=== PATIENT | male | born 1965 | race Caucasian/White ===

== ENCOUNTER 2019-02-02 20:30 | Emergency (ER) | payer SELFPAY ==
[~2019-02-02] VITALS: Ht 160 cm; Wt 73.6 kg
[2019-02-02 20:33] VITALS: Ht 160 cm; Wt 73.6 kg
[2019-02-02] MEDS ORDERED: ONDANSETRON 4 MG INJ IV STA (22:37)
[2019-02-02] MEDS ORDERED: morphine 4 MG/ML VIAL IV STA (22:37)
--- NOTE | 2019-02-02 22:43 | ERD ---
ER Documentation Chief Complaint Chief Complaint DENTAL PAIN X 2 WEEKS HPI This is a 53-year-old male presented emergency department with complaints of right-sided pain and swelling that extends to the right ear. Also complains of right tooth pain for about a week. Denies headache, head injury, loss of consciousness, dizziness, neck pain, neck stiffness, throat pain, difficulty swallowing, difficulty breathing lying flat, shoulder pain, chest pain, back pain, abdominal pain, nausea, vomiting, constipation, diarrhea, urinary symptoms, loss of bowel and bladder control, trauma, injury, falls, difficulty walking due to pain, numbness or tingling sensation, calf pain, recent travel, recent major surgery in the last 3 weeks, calf pain, recent long travel, recent exposure to any illness, recent antibiotic use in the last 3 months, fever, chills, seizures. Past medical history: Surgical history: Social: Denies smoking, use of alcoholic beverages, use of illegal drugs. ROS All systems reviewed and are negative except as per history of present illness. Medications Home Meds Active Scripts Ciprofloxacin Hcl/Dexameth (Ciprodex Otic Suspension) 7.5 Ml Drops.susp, 4 DROP BOTH EARS BID for 7 Days, EA Prov:DRISSELDA F 02/02/19 Omeprazole* (Omeprazole*) 40 Mg Capsule.dr, 40 MG PO DAILY, #30 CAP Prov:PASILABANALFREDOJONATHAN F 02/02/19 Ibuprofen* (Motrin*) 800 Mg Tab, 800 MG PO Q6H PRN for PAIN AND OR ELEVATED TEMP, #30 TAB Prov:PASILAVITALYELDA F 02/02/19 Ondansetron Hcl* (Zofran*) 4 Mg Tablet, 4 MG PO Q8H PRN for NAUSEA AND/OR VOMITING, #30 TAB Prov:PASILABANALFREDOJONATHAN F 02/02/19 Prednisone* (Prednisone*) 20 Mg Tab, 60 MG PO DAILY for 4 Days, TAB Prov:PASILABANALFREDOAR F 02/02/19 Amoxicillin/Potassium Clav (Amox-Clav 875-125 mg Tablet) 875-125 mg Tab, 1 TAB PO BID for 10 Days, #20 TAB Prov:PASILABANALFREDOAR F 02/02/19 Allergies Allergies: Coded Allergies: No Known Allergy (Unverified , 02/02/19) PMhx/Soc Medical and Surgical Hx: pt denies Medical Hx, pt denies Surgical Hx History of Surgery: No Anesthesia Reaction: No Hx Neurological Disorder: No Hx Respiratory Disorders: No Hx Cardiac Disorders: No Hx Psychiatric Problems: No Hx Miscellaneous Medical Probl: No Hx Alcohol Use: No Hx Substance Use: No Hx Tobacco Use: No Smoking Status: Never smoker Physical Exam Vitals Vital Signs Date Temp Pulse Resp B/P (MAP) Pulse Ox O2 O2 Flow FiO2 Time Delivery Rate 02/03/19 98.5 61 20 117/84 99 Room Air 00:15 (95) 02/02/19 99.6 78 16 134/69 100 20:33 (90) Physical Exam Head: Atraumatic Eyes: Normal Conjunctiva. No conjunctival injection. Extraocular movement of his eyes are within normal limits. There is no pain in eye movement. Periorbital area has no swelling/tenderness/discoloration. ENT: Normal External Ears, Nose and Mouth. Bilateral ears: External canal has erythema. TMs are not erythematous. No bleeding. No discharge. No hearing loss. No mastoid tenderness. Nose: There is right frontal or maxillary sinus tenderness palpation. Throat: Uvula is in midline and nondisplaced. Right upper first premolar gum area has a mild greenish discharge with tenderness. Tonsils are +1 bilaterally without redness and without exudates. Tolerating secretions. Patent airway. Speaks full and clear sentences. No tripoding. Neck: Full range of motion. No meningismus. No nuchal rigidity. No signs of meningeal irritation. Resp: Clear to auscultation bilaterally. No accessory muscle use in breathing. Cardio: Regular rate and rhythm, no murmurs Abd: Soft, non tender, non distended. Normal bowel sounds. Negative Roberts sign. Skin: No petechiae or rashes. Color appears normal for ethnicity. No skin tenting. No signs of severe dehydration. Back: No midline or flank tenderness Ext: No cyanosis, or edema Neur: Awake and alert. No neurological deficits. Psych: Normal Mood and Affect Results 24 hrs Current Medications Medications Dose Sig/[employer] Start Time Status Last (Trade) Ordered Route PRN Stop Time Admin Dose Reason Admin 125 mg ONCE ONCE 02/02/19 DC Methylprednis IV 23:00 olone Sodium 02/02/19 23:00 Succinate (Solu-Medrol) Morphine 4 mg ONCE STAT 6/22/19 DC Sulfate IV 22:37 (morphine) 02/02/19 22:53 Ondansetron 4 mg ONCE STAT 02/02/19 DC HCl (Zofran IV 22:37 Inj) 02/02/19 22:53 Sodium 1,000 ml @ Q1H ONCE 02/02/19 DC Chloride 1,000 mls/hr IV 23:00 02/02/19 23:00 125 mg ONCE ONCE 02/02/19 DC Methylprednis IM 23:00 olone Sodium 02/02/19 23:07 Succinate (Solu-Medrol) Ceftriaxone 1 gm ONCE ONCE 02/02/19 DC Sodium IM 23:00 (Rocephin) 02/02/19 23:07 Ondansetron 4 mg ONCE STAT 02/02/19 DC 02/02/19 HCl (Zofran ODT 22:51 23:08 Odt) 02/02/19 22:53 1 tab ONCE ONCE 02/02/19 DC 02/02/19 Acetaminophen PO 23:00 23:08 / 02/02/19 23:01 Hydrocodone Bitart ([place] ()) Ceftriaxone 50 ml @ ONCE ONCE 02/02/19 DC 02/02/19 Sodium 100 mls/hr IVPB 23:30 23:22 02/02/19 23:59 125 mg ONCE ONCE 02/02/19 DC 02/02/19 Methylprednis IV 23:30 23:09 olone Sodium 02/02/19 23:31 Succinate (Solu-Medrol) Procedures/MDM Diagnostic tests: Clinical exam. Treatment: Ceftriaxone IV. Solu-Medrol IV clinical exam. [place]. Zofran. Re-evaluation: No episode of emesis in the emergency department. Extraocular movement of his eyes are within normal limits. Lips/throat: No lip swelling. Uvula is in midline and not displaced. Tonsils are +2 bilaterally with redness but no exudates. Tolerating secretions with patent airway. Speaks full and clear sentences. No nuchal rigidity. No signs of any irritation. Romberg test is negative. No neurological deficits. Stated that he feels much better at this time and that he is ready and comfortable going home. Differential diagnosis I have low suspicion for sepsis, severe serious bacterial, angioedema, pe ritonsillar abscess, meningitis, periorbital cellulitis, orbital cellulitis, mastoiditis,, anaphylaxis, anaphylactic shock. Final diagnosis: Sinusitis. Otitis externa. Prescription: Augmentin. Motrin. Prednisone. Zofran. Cipro optic drops. Omeprazole. Follow-up with PCP in the next 24-48 hours. Follow-up with your dentist in the next 24 to 48 hours. Follow-up with ENT in the next 24 to 48 hours. Come back here in the emergency department for any new symptoms or any worsening symptoms. All questions and concerns were answered. Patient and family members verbalized understanding and agreed with plan of care. Hemodynamically stable on discharge. Departure Diagnosis: Primary Impression: Dental abscess Additional Impressions: Gum abscess Sinusitis Otitis externa Condition: Stable Additional Instructions: Follow-up with PCP in the next 24-48 hours. Follow-up with your dentist in the next 24 to 48 hours. Follow-up with ENT in the next 24 to 48 hours. Come back here in the emergency department for any new symptoms or any worsening symptoms. ELDA NAQVI Feb 02, 2019 22:43
[2019-02-02] MEDS ORDERED: ONDANSETRON (ODT) 4 MG TAB ODT STA (22:51)
[2019-02-02] MEDS ORDERED: IBUP800T48 PO (22:58)
[2019-02-02] MEDS ORDERED: OMEP40CA6 PO (22:58)
[2019-02-02] MEDS ORDERED: PRED20TA PO (22:58)
[2019-02-02] MEDS ORDERED: AMOX1TAB10 PO (22:58)
[2019-02-02] MEDS ORDERED: ONDA4TAB8 PO (22:58)
[2019-02-02] MEDS ORDERED: CIPR7.5D BOTH EARS (22:59)
[2019-02-02] MEDS ORDERED: HYDROCODONE/APAP (10/325) TAB PO ONE (23:00)
[2019-02-02] MEDS ORDERED: SOD CHLORIDE 0.9% 1,000 ML IV ONE (23:00)
[2019-02-02] MEDS ORDERED: METHYLPREDNISOLONE 125 MG INJ IV ONE ×2 (23:00→23:30)
[2019-02-02] MEDS ORDERED: METHYLPREDNISOLONE 125 MG INJ IM ONE (23:00)
[2019-02-02] MEDS ORDERED: CEFTRIAXONE 1 GM INJ IM ONE (23:00)
[2019-02-02] MEDS ORDERED: CEFTRIAXONE 1 GM/50 ML (PMX) 50 ML IVPB ONE (23:30)
[2019-02-03 00:15] VITALS: BP 117/84; PULSE 61; RESP 20
== END 2019-02-03 00:25 | disposition home or self-care (01) ==
LOC: FTE 20:30
DX: K04.6 Periapical abscess with sinus (principal); H60.93 Unspecified otitis externa, bilateral; K05.319 Chronic periodontitis, localized, unspecified severity
CPT/HCPCS: 96374; 96375; 99284; J0696; J2930; J7030

== ENCOUNTER 2019-02-13 19:40 | Emergency (ER) | payer MEDICAID ==
[~2019-02-13] VITALS: Ht 154.9 cm; Wt 72.5 kg
[~2019-02-13 19:40] MED LIST: AMOX1TAB10 PO; CIPR7.5D BOTH EARS; IBUP800T48 PO; OMEP40CA6 PO; ONDA4TAB8 PO; PRED20TA PO
[2019-02-13 19:43] VITALS: BP 119/63; PULSE 65; RESP 18; Ht 154.9 cm; Wt 72.5 kg
--- NOTE | 2019-02-13 21:31 | ERD ---
ER Documentation Chief Complaint Chief Complaint BILAT EAR PAIN X'S 2 WEEKS, SEEN HERE; PAIN CONTINUES HPI 53-year-old male presents the emergency department who presents emergency department department for right sinus pain. Was seen by myself in the emergency department was treated for Sinusitis, Tonsillitis, otitis media. Denies headache, head injury, loss of consciousness, dizziness, neck pain, neck stiffness, throat pain, difficulty swallowing, difficulty breathing lying flat, shoulder pain, chest pain, back pain, abdominal pain, nausea, vomiting, constipation, diarrhea, urinary symptoms, loss of bowel and bladder control, trauma, injury, falls, difficulty walking due to pain, numbness or tingling sensation, calf pain, recent travel, recent major surgery in the last 3 weeks, calf pain, recent long travel, recent exposure to any illness, recent antibiotic use in the last 3 months, fever, chills, seizures. Past medical history: Denies. Surgical history: Denies. Social: Denies smoking, use of alcoholic beverages, use of illegal drugs. ROS All systems reviewed and are negative except as per history of present illness. Medications Home Meds Active Scripts Mometasone Furoate* (Nasonex*) 50 Mcg/[place] - 17 Gm [place].pump, 1 SPRAY NASAL BID, #1 BOTTLE IN EACH NOSTRIL Prov:PASILAELDA HAIDER F 02/13/19 Methylprednisolone* (Medrol* DOSE PACK) 4 Mg/Dose-Pack Tab.ds.pk, 4 MG PO . DIRECTED, #1 PACKET Prov:PASILABANALFREDOAR F 02/13/19 Omeprazole* (Omeprazole*) 40 Mg Capsule.dr, 40 MG PO DAILY, #30 CAP Prov:PASILABANELDA F 02/13/19 Ibuprofen* (Motrin*) 800 Mg Tab, 800 MG PO Q6H PRN for PAIN AND OR ELEVATED TEMP, #30 TAB Prov:PASILABANALFREDOAR F 02/13/19 Sulfamethoxazole/Trimethoprim* (Bactrim Ds* Tablet) 1 Each Tablet, 1 TAB PO BID for 7 Days, #14 TAB Prov:PASILABANALFREDOAR F 02/13/19 Ciprofloxacin Hcl/Dexameth (Ciprodex Otic Suspension) 7.5 Ml Drops.susp, 4 DROP BOTH EARS BID for 7 Days, EA Prov:PASILABAN,ALFREDOAR F 02/02/19 Omeprazole* (Omeprazole*) 40 Mg Capsule.dr, 40 MG PO DAILY, #30 CAP Prov:ELDA NAQVI 02/02/19 Ibuprofen* (Motrin*) 800 Mg Tab, 800 MG PO Q6H PRN for PAIN AND OR ELEVATED TEMP, #30 TAB Prov:ELDA NAQVI 02/02/19 Ondansetron Hcl* (Zofran*) 4 Mg Tablet, 4 MG PO Q8H PRN for NAUSEA AND/OR VOMITING, #30 TAB Prov:ELDA NAQVI 02/02/19 Prednisone* (Prednisone*) 20 Mg Tab, 60 MG PO DAILY for 4 Days, TAB Prov:ELDA NAQVI 02/02/19 Amoxicillin/Potassium Clav (Amox-Clav 875-125 mg Tablet) 875-125 mg Tab, 1 TAB PO BID for 10 Days, #20 TAB Prov:ELDA NAQVI 02/02/19 Allergies Allergies: Coded Allergies: No Known Allergy (Unverified , 02/02/19) PMhx/Soc Medical and Surgical Hx: pt denies Medical Hx, pt denies Surgical Hx History of Surgery: No Anesthesia Reaction: No Hx Neurological Disorder: No Hx Respiratory Disorders: No Hx Cardiac Disorders: No Hx Psychiatric Problems: No Hx Miscellaneous Medical Probl: No Hx Alcohol Use: No Hx Substance Use: No Hx Tobacco Use: No Smoking Status: Never smoker Physical Exam Vitals Physical Exam Head: Atraumatic Eyes: Normal Conjunctiva. There is no periorbital swelling bilaterally. Extraocular movement of his eyes are within normal limits. There is no visual field loss. ENT: Normal External Ears, Nose and Mouth. Bilateral ears: TMs are not erythematous. No bleeding. No discharge. No hearing loss. No mastoid tenderness. No foreign body seen. Nose: There is right frontal and maxillary sinus tenderness palpation. No obstructions noted. No foreign bodies seen. No septal hematoma. Throat: Uvula is in midline and nondisplaced. Tonsils are +1 bilaterally without redness and without exudates. Tolerating secretions. Patent airway. Speaks full and clear sentences. No tripoding. Neck: Full range of motion. No meningismus. No nuchal rigidity. No signs of meningeal irritation. Resp: Clear to auscultation bilaterally. No accessory muscle use in breathing. Cardio: Regular rate and rhythm, no murmurs Abd: Soft, non tender, non distended. Normal bowel sounds. Negative Roberts sign. Skin: No petechiae or rashes. Color appears normal for ethnicity. No skin tenting. No signs of severe dehydration. Back: No midline or flank tenderness Ext: No cyanosis, or edema Neur: Awake and alert. Romberg test is negative. No neurological deficits. Psych: Normal Mood and Affect adult Procedures/MDM Diagnostic tests: Clinical exam. Treatment: Refuses treatment here in the emergency department. Re-evaluation: No signs of airway obstruction. No stridor. No tripoding. No drooling. Stated that he is comfortable to go home. Differential diagnosis I have low suspicion for facial cellulitis, periorbital cellulitis, orbital cellulitis, meningitis, mastoiditis, peritonsillar abscess, pneumonia, sepsis, deep space infection. Final diagnosis: Possible nasal polyps. Patient is insisting to be prescribed with steroid and antibiotic. Prescription: Motrin. Prednisone. Bactrim. Follow-up with PCP in the next 24-48 hours. Follow-up with ENT in the next 24 to 48 hours. Come back here in the emergency department for any new symptoms or any worsening symptoms. All questions and concerns were answered. Patient and family members verbalized understanding and agreed with plan of care. Hemodynamically stable on discharge. Departure Diagnosis: Primary Impression: Sinusitis Condition: Stable Additional Instructions: Follow-up with PCP in the next 24-48 hours. Follow-up with ENT in the next 24 to 48 hours. Come back here in the emergency department for any new symptoms or any worsening symptoms. ELDA NAQVI Feb 13, 2019 21:31
[2019-02-13] MEDS ORDERED: SULF1TAB31 PO (21:42)
[2019-02-13] MEDS ORDERED: IBUP800T48 PO (21:42)
[2019-02-13] MEDS ORDERED: MED4DP PO (21:42)
[2019-02-13] MEDS ORDERED: OMEP40CA6 PO (21:42)
[2019-02-13] MEDS ORDERED: MOME17SP14 NASAL (21:43)
== END 2019-02-13 22:00 | disposition home or self-care (01) ==
LOC: FTE 19:40
DX: J32.9 Chronic sinusitis, unspecified (principal)
CPT/HCPCS: 99283